=== PATIENT | male | born 1940 | race Caucasian/White ===

== ENCOUNTER 2018-12-10 18:04 | Inpatient (IN) | payer MEDICARE, OTHER ==
[~2018-12-10] VITALS: Ht 172.7 cm; Wt 98.9 kg
--- NOTE | ~2018-12-10 | HEMODYNAMI ---
PATIENT:NED YOUNG MEDICAL RECORD: [id number] : 38 [id number] ADMISSION DATE: 12/11/18 Generatedon:12/12/201814:05 Patient name: NED YOUNG Patient #: [id number] SSN: [id number] : 1940 Date of study: 12/12/2018 Page: Of Hemodynamic Procedure Report Patient Data Patient Demographics Procedure consent was obtained First Name: NED Gender: Male Last Name: HECTOR : 1940 Patient #: [id number] Age: 78 year(s) Race: SSN: [id number] Additional ID: [id number] Contact details Address: [address] [place] [address] State: [place] City: [facility] [place] Zip code: [address] Past Medical History History of disease Date Diagnosis Comments CAD Allergies: No known allergies Admission Admission Data Admission Date: 12/11/2018 Admission Time: 15:25 Arrival Date: 12/12/2018 Arrival Time: 0:00 Admit Source: Other Insurance Payor: Medicare Room #: D.2121 [facility] #: [id number] Height (in.): 68.11 BSA: 2.12 (m2) Height (cm.): 173 BMI: 33.08 (kg/m2) Weight (lbs.): 218.26 Weight (kg.): 99 Lab Results Lab Result Date: 12/12/2018 Lab Result Time: 0:00 Biochemistry Name Units Result Min Max BUN mg/dl 17 --(---*)-- 7 18 Creatinine mg/dl 1.1 --(--*-)-- 0.6 1.3 CBC Name Units Result Min Max Hematocrit % 39.9 -*(----)-- 42 54 Hemoglobin g/dl 13.1 -*(----)-- 13.5 17.5 Procedure Procedure Types Cath Procedure Diagnostic Procedure LHC LHC w/Coronaries w/Grafts FFR/IVUS FFR Initial FFR Additional Sedation Charges Moderate Sedation up to 30 minutes PCI Procedure Coronary Stent Coronary Stent Initial Procedure Description Procedure Date Procedure Date: 12/12/2018 Procedure Start Time: 13:28 Procedure End Time: 14:02 Procedure Staff Name Function Be Garcia MD Performing Physician Nayana Ricci RT Monitor Justine Denny RT Monitor Yumiko Cosby RT Scrub Donna Duron RN Nurse Procedure Data Cath Procedure Fluoroscopy Diagnostic fluoroscopy Total fluoroscopy Time: time: 14.3 min 14.3 min Diagnostic fluoroscopy Total fluoroscopy dose: dose: 1631 mGy 1631 mGy Contrast Material Contrast Material Type Amount (ml) Isovue 300 203 Entry Location Entry Primary Successful Side Size Upsize Upsize Entry Closure Succes sful Closure Location (Fr) 1 (Fr) 2 (Fr) Remarks Device Remarks Femoral Right 5 Fr 6 Fr Exoseal artery Short Estimated blood loss: 10 ml Diagnostic catheters Device Type Used For End Catheter Placement MULTIPACK Pigtail 5 Fr LV Angiography catheter MULTIPACK JL 4.0 5Fr Left Coronary catheter Angiography MULTIPACK 3DRC 5Fr Right Coronary catheter Angiography DIAGNOSTIC AR2 MOD 5 Fr Procedure catheter ([id number]) Procedure Complications No complications Procedure Medications Medication Administration Route Dosage Oxygen etCO2 Nasal cannula 2 l/min Lidocaine 2% added to field 20 Heparin Flush Bag added to field 2 bags (1000units/500ml NS) 0.9% NaCl I.V. 100 ml/hr Versed I.V. 2 mg Fentanyl I.V. 100 mcg Versed I.V. 2 mg Fentanyl I.V. 100 mcg Heparin Bolus I.V. 4000 units Hemodynamics Rest BSA: 2.12 (m2) HGB: 13.1 (g/dl) O2 Consumption: Estimated: 244.41 (ml/min) O2 Co nsumption indexed: Estimated:115.29 (ml/min/m) Heart Rate: 72 (bpm) Snapshots Pre Cath Intra NCS Post Cath Vital Signs Time Heart Resp SPO2 etCO2 NIBP (mmHg) Rhythm Pain Sedation Rate (ipm) (%) (mmHg) Status Level (bpm) 13:14:59 71 10 94 29.2 147/68(117) NSR 0 (11) 10(A) , No pain 13:19:21 71 11 96 29.2 145/73(116) NSR 0 (11) 10(A) , No pain 13:23:45 71 13 97 18.7 143/75(117) NSR 0 (11) 10(A) , No pain 13:28:09 72 14 97 23.2 147/76(111) NSR 0 (11) 9(A) , No pain 13:32:39 71 18 93 40.5 143/67(110) NSR 0 (11) 9(A) , No pain 13:36:55 71 16 94 39.7 136/69(110) NSR 0 (11) 9(A) , No pain 13:41:16 71 10 95 39.7 136/65(103) NSR 0 (11) 9(A) , No pain 13:45:38 70 11 96 41.2 137/67(102) NSR 0 (11) 9(A) , No pain 13:50:02 70 10 96 41.2 138/66(98) NSR 0 (11) 9(A) , No pain 13:54:20 69 10 96 38.9 133/61(101) NSR 0 (11) 9(A) , No pain 13:58:38 68 11 96 37.4 129/63(110) NSR 0 (11) 10(A) , No pain 14:03:00 69 13 96 36.7 135/67(103) NSR 0 (11) 10(A) , No pain Medications Time Medication Route Dose Verified Delivered Reason Notes Effectiveness by by 13:13:47 Oxygen etCO2 2 Be Buffie used for Nasal l/min Jose Duron RN procedure cannula 13:13:55 Lidocaine 2% added 20ml Beradha rL for local to vial Jose Garcia MD anesthetic field 13:14:01 Heparin Flush added 2 Be Be used for Bag to bags Jose Garcia MD procedure (1000units/500ml field NS) 13:14:10 0.9% NaCl I.V. 100 Be Buffie Per physician ml/hr Jose Duron RN 13:23:22 Versed I.V. 2 mg Be Buffie for sedation Jose Duron RN 13:23:28 Fentanyl I.V. 100 Be Buffie for sedation mcg Jose Duron RN 13:30:06 Versed I.V. 2 mg Be Buffie for sedation Jose Duron RN 13:30:09 Fentanyl I.V. 100 Be Thompson for sedation mcg Jose Duron RN 13:52:48 Heparin Bolus I.V. 4000 Be Thompson for verif ied units Jose Duron RN anticoagulation with dr garcia Procedure Log Time Note 12:46:21 Informed consent obtained and on chart 12:46:48 Procedure Status Urgent Heart Cath (IP). 12:46:49 Time tracking: Regular hours (M-F 7:00 - 5:00) 12:46:54 Plan of Care:Hemodynamics will remain stable., Cardiac rhythm will remain stable., Comfort level will be maintained., Respiratory function will remain adequate., Patient/ family verbilizes understanding of procedure., Procedure tolerated without complication., Recovers from procedure without complications.. 12:47:03 Justine Denny RT(R) (CV) sent for patient. Start room use. 12:59:51 Patient arrived from Med II to CCL 1. Patient remains on bed/stretcher for procedure. 12:59:57 Warm blankets applied, and chato hugger turned on for patient comfort. 12:59:58 Correct patient and procedure confirmed by team. 12:59:59 ECG and BP/O2 sat monitors applied to patient. 13:01:49 Patient received from PCU to CCL 1 Alert and oriented. Tansferred to table in Supine position. 13:05:44 Pre-procedure instructions explained to patient. 13:05:44 Pre-op teaching completed and patient verbalized understanding. 13:05:46 Family unavailable. 13:05:47 Patient NPO since Midnight. 13:05:54 Patient allergic to No known allergies 13:06:00 Is patient on blood thinner?Yes 13:06:04 ACC The patient was administered the following blood thiners within the last 24 hours: ACCPlavix 13:06:06 Patient diabetic? Yes. 13:06:08 If diabetic: On Metformin? Yes 13:06:12 If on Metformin: Last Dose? 12/11/2018 13:06:28 Previous problem with sedation/anesthesia? No ? 13:06:29 Snore? Yes 13:06:30 Sleep apnea? No 13:06:31 Deviated septum? No 13:06:33 Opens mouth fully? Yes 13:06:34 Sticks out tongue? Yes 13:06:38 Airway obstruction? Yes COPD 13:07:19 Dentures? No ? 13:07:22 Pre procedure: right dorsailis pedis pulse Doppler 13:07:28 Patient pain scale 0/10 ?. 13:07:34 IV patent on arrival in left antecubital with 0.9% NaCl at [facility]. 13:09:00 Lab Result : BUN 17 mg/dl 13:09:00 Lab Result : Hemoglobin 13.1 g/dl 13:09:00 Lab Result : Creatinine 1.1 mg/dl 13:09: Lab Result : Hematocrit 39.9 % 13:: Lab results completed and on chart. 13:09:17 Stress Test: no; N/A ? 13:09:21 Right groin area was prepped with chlora-prep and draped in sterile fashion 13:: Alarms reviewed by R. N. 13:09: Sharps counted by scrub and verified by R.N. 13:13:03 Risk of Mortality: .1 13:13:06 Risk of blood transfusion: .8 13:13:09 Risk of SOPHIA: .5 13:13:35 Vital chart was started 13:13:47 Oxygen 2 l/min etCO2 Nasal cannula was administered by Donna Duron RN; used for procedure; Verbal order read back and verified. 13:13:55 Lidocaine 2% 20ml vial added to field was administered by Be Garcia MD; for local anesthetic; Verbal order read back and verified. 13:14:01 Heparin Flush Bag (1000units/500ml NS) 2 bags added to field was administered by Be Garcia MD; used for procedure; Verbal order read back and verified. 13:14:10 0.9% NaCl 100 ml/hr I.V. was administered by Donna Duron RN; Per physician; Verbal order read back and verified. 13:14:15 Procedure type changed to Cath procedure, Diagnostic procedure, LHC, LHC w/Coronaries w/Grafts, FFR/IVUS, FFR Initial, FFR Additional, Sedation Charges, Moderate Sedation up to 30 minutes, PCI procedure, Coronary Stent, Coronary Stent Initial 13:17:06 Use device set Femoral Dx 13:17:08 ACIST Syringe (12207) opened to sterile field. 13:17:09 Bag Decanter (2002S) opened to sterile field. 13:17:15 Medline Cath Pack ([id number]) opened to sterile field. 13:17:24 ACIST Hand Control (96744) opened to sterile field. 13:17:25 ACIST Manifold (08600) opened to sterile field. 13:17:32 DIAGNOSTIC Multipack 5Fr catheter set (LP0381) opened to sterile field. 13:17:34 Tegaderm 4 x 4 (1626W) opened to sterile field. 13:17:36 SHEATH 5FR Colerain (XCJ129) opened to sterile field. 13:17:37 EMERALD Guide Wire (416-502) opened to sterile field. 13:21:07 Baseline sample Acquired. 13:21:10 Rhythm: sinus rhythm 13:21:12 Full Disclosure recording started 13:21:48 --------ALL STOP TIME OUT------ 13:21:48 Final Timeout: patient, procedure, and site verified with staff and physician. All members of the team are in agreement. 13:21:50 Right groin site verified by team. 13:21:53 Fire Safety Assessment: A--An alcohol-based skin anteseptic being used preoperatively., C--Open oxygen or nitrous oxide is being used., D--An ESU, laser, or fiber-optic light is being used. 13:21:56 Physical assessment completed. ASA score P 3 - A patient with severe systemic disease as per Be Garcia MD. 13:22:01 2) 60-89 Mildly reduced kidney function, and other findings (as for stage 1) point to kidney disease. 13:22:04 Maximum allowable contrast dose (3.7 X eGFR X 0.75)189 ml. 13:22:07 Sedation plan: IV Moderate Sedation Medication:Versed, Fentanyl 13:22:44 Zero performed for pressure channel P1 13:23:22 Versed 2 mg I.V. was administered by Donna Duron RN; for sedation; Verbal order read back and verified. 13:23:28 Fentanyl 100 mcg I.V. was administered by Donna Duron RN; for sedation; Verbal order read back and verified. 13:24:04 Arrival Date: 12/12/2018 12:00:00 AM 13:24:26 Insurance Payor : Medicare 13:24:30 Admit Source: Other 13:24:41 Patient Height : 68.11 inches 13:24:46 Patient Weight : 218.26 lbs 13:25:54 ACC Patient presents with Stable Angina CCS Anginal Class 3--Marked limitation of physical activity, angina occurs with ordinary activity.. 13:26:04 ACCPatient has been prescribed/administered the following anti-anginal medication within the last 2 weeks: None 13:27:56 Procedure started. 13:28:02 Local anesthetic to right femoral artery with Lidocaine 2% by Be Garcia MD.INITIAL ACCESS ONLY 13:29:17 A 5 Fr sheath was inserted into the Right Femoral artery 13:29:50 A MULTIPACK Pigtail 5 Fr catheter was advanced over the wire and used for LV Angiography. 13:29:54 LV gram done using NOEL 13:30:02 Injector settings: Ml/sec: 10, Volume: 20, 13:30:06 Versed 2 mg I.V. was administered by Donna Duron RN; for sedation; Verbal order read back and verified. 13:30:09 Fentanyl 100 mcg I.V. was administered by Donna Duron RN; for sedation; Verbal order read back and verified. 13:30:44 EF : 35 % 13:30:52 Catheter removed. 13:31:09 A MULTIPACK JL 4.0 5Fr catheter was advanced over the wire and used for Left Coronary Angiography. 13:31:21 LCA angiography performed. 13:32:28 Injector settings: Ml/sec: 3, Volume: 6, 13:33:01 Catheter removed. 13:33:13 A MULTIPACK 3DRC 5Fr catheter was advanced over the wire and used for Right Coronary Angiography. 13:33:42 INFLATOR Merit BasixCompak (PR6619) opened to sterile field. 13:33:55 SHEATH 6FR Colerain (ZYP102) opened to sterile field. 13:34:06 CHOICE PT Extra Support 182cm wire ([id number]) opened to sterile field. 13:34:22 BARNARD to LAD angiography performed. 13:35:00 RCA angiography performed. 13:35:04 Catheter removed. 13:35:10 A DIAGNOSTIC AR2 MOD 5 Fr catheter (707383C) was advanced over the wire and used for Procedure. 13:35:50 SVG to Diag occluded. 13:36:11 Catheter removed. 13:36:36 Sheath upsized to a 6 Fr Short. 13:37:19 [place] Verrata Plus pressure wire (93865D) opened to sterile field. 13:37:21 GUIDE 6FR XBLAD 4.0 catheter ([id number]) opened to sterile field. 13:37:40 6 Fr XBLAD4 guide catheter was inserted over the wire 13:37:49 FFR/IFR wire advanced. 13:39:01 Wire advanced across lesion. 13:39:21 mCirc lesion measured at 0.93 with IFR 13:39:51 IFR WIRE IS REDIRECTED TO THE OM. 13:40:00 OM1 lesion measured at 0.90 with IFR 13:44:41 Wire removed. 13:45:06 FIELDER XT 190cm guidewire ([id number]) opened to sterile field. 13:45:42 FIELDER WIRE wire advanced. 13:47:05 FIELDER XT J 300cm guide wire ([id number]) opened to sterile field. 13:47:22 SuperCross Microcatheter 90 angle (5304) opened to sterile field. 13:48:26 Wire removed. 13:48:57 SUPERCROSS AND FIELDER 300 WIRE ADVANCED. 13:52:48 Heparin Bolus 4000 units I.V. was administered by Donna Duron RN; for anticoagulation; verified with dr garcia Verbal order read back and verified. 13:54:05 Inflate balloon Inflation number: 1 A EUPHORA 2.5 x 12 Balloon ([id number]) was prepped and advanced across the Mid LAD , then inflated to 11 [place] for 0:10 (min:sec) . 13:54:29 Inflation number: 2 The EUPHORA 2.5 x 12 Balloon ([id number]) was reinflated across the Mid LAD , to 11 [place] for 0:00 (min:sec) . 13:54:37 Inflation number: 3 The EUPHORA 2.5 x 12 Balloon ([id number]) was reinflated across the Mid LAD , to 15 EV[place] for 0:00 (min:sec) . 13:54:48 Balloon removed over the wire. 13:55:20 GUIDE 6FR XBLAD 4.0 catheter ([id number]) opened to sterile field. 13:56:25 Place stent Inflation Number: 4 A EMMA RX 2.5 x 08 stent ([id number]) was prepped and advanced across the Mid LAD . The stent was deployed at 15 EVERTON for 0:10 (min:sec) . 13:57:04 Pre PCI Site: [place] mLAD has 99% stenosis. 13:57:16 Post PCI Site: [place] mLAD has 0% stenosis. 13:57:22 ACT drawn and resulted at 177 seconds. (normal therapeutic range 180-240 seconds). 13:57:26 Stent catheter was removed intact over wire. 13:57:57 EXOSEAL 6Fr (EX600) opened to sterile field. 13:58:23 Sheath removed intact; hemostasis achieved with Exoseal to the Right Femoral artery. 13:58:26 Procedure ended.(Physican Out) 13:58:50 Contrast amount:Isovue 300 203ml. 13:59:02 Fluoroscopy time 14.30 minutes. 13:59:12 Flurop Dose total: 1631 13:59:12 Fluoroscopy dose: 1631 mGy 13:59:22 Dose Area Product 91288 mGy/cm. 13:59:30 Maximum allowable dose exceeded? Yes. 13:59:32 Sharps counted by scrub and verified by R.N. 13:59:35 Insertion/operative site no bleeding no hematoma. 13:59:41 Post-op/insertion site Right Femoral artery dressed using a 4 x 4 and Tegaderm. 13:59:46 Post right femoral artery:stable 13:59:49 Post Procedure Pulses reassessed and unchanged 13:59:58 Post-procedure physical assessment completed. ASA score P 3 - A patient with severe systemic disease as per Be Garcia MD. 14:00:02 Post procedure rhythm: unchanged. 14:00:06 Estimated blood loss: 10 ml 14:00:11 Post procedure instruction explained to patient.Patient verbalizes understanding. 14:00:12 Patient needs reinforcement of post procedure teaching. 14:01:25 Procedure and supply charges have been captured, reviewed, submitted and are correct. 14:02:28 Procedure Complication : No complications 14:02:31 Vital chart was stopped 14:02:35 [facility] Findings: MVD- PCI performed (see procedure note) 14:02:40 Operative report dictated upon procedure completion. 14:02:41 See physician's report for complete and final results. 14:02:43 Report given to Med II. 14:02:47 Patient transfered to [facility] with Bed. 14:02:51 Procedure ended. 14:02:51 Full Disclosure recording stopped 14:02:58 ACC-PCI Only Patient was given prescriptions, or instructed by Be Garcia MD to start/continue the following medications upon discharge: Plavix 14:03:04 End room use (Document Last) Intervention Summary Intervention Notes Time ActionType Lesion and Equipment Used Action# Pressure Duration Attributes 13:54:05 Inflate Mid LAD EUPHORA 2.5 x 1 11 00:10 balloon 12 Balloon ([id number]) 13:54:29 Reinflate Mid LAD EUPHORA 2.5 x 2 11 00:00 balloon 12 Balloon ([id number]) 13:54:37 Reinflate Mid LAD EUPHORA 2.5 x 3 15 00:00 balloon 12 Balloon ([id number]) 13:56:25 Place stent Mid LAD EMMA RX 2.5 x 4 15 00:10 08 stent ([id number]) Device Usage Item Name Manufacture Quantity Catalog Number Hospital Part Current Minimal Lot# / Charge Number Stock Stock Serial# Code ACIST Syringe Acist 1 45953 924353 689068 851665 20 (98875) Medical Systems Inc Bag Decanter Microtek 1 2001S 957950 11797 592482 5 (2001S) Medical Inc. Medline Cath Medline 1 [id number] 333721 84336 764159 5 Pack ([id number]) ACIST Hand Acist 1 90036 161660 459726 046276 5 Control Medical (06544) Systems Inc ACIST Manifold Acist 1 81167 534094 124471 199936 5 (13669) Medical Systems Inc DIAGNOSTIC Cardinal 1 KR2276 521930 41575 840592 30 Multipack 5Fr Health catheter set (XE7263) Tegaderm 4 x 4 3M 1 1626W 818976 801024 104195 5 (1626W) SHEATH 5FR Terumo 1 SEA072 851307 855960 254935 5 Colerain (OWU622) EMERALD Guide Cardinal 1 502-455 829610 443212 656223 5 Wire (502455) Health MULTIPACK Cardinal 1 306708 5 Pigtail 5 Fr Health catheter MULTIPACK JL Cardinal 1 954100 5 4.0 5Fr Health catheter MULTIPACK 3DRC Cardinal 1 090445 5 5Fr catheter Health INFLATOR Merit Merit 1 AL6607 479378 314212 646596 15 BasTalicious Medical (VM3090) SHEATH 6FR Terumo 1 MTO171 531836 974250 395072 40 Colerain (TQK226) CHOICE PT [place] 1 [id number] 937527 727450 379097 5 Extra Support Scientific 182cm wire ([id number]) DIAGNOSTIC AR2 Cardinal 1 457161C 819233 303831 831611 20 MOD 5 Fr Health catheter (948481X) [place] 1 46519D 446878 831403841 052694 5 Verrata Plus pressure wire (21872M) GUIDE 6FR Cardinal 2 18766855 456967 312331 848330 3 XBLAD 4.0 Health catheter (38163139) FIELDER XT Garay 1 [id number] 198129 72227 411010 5 190cm Vascular guidewire ([id number]) FIELDER XT J Garay 1 [id number] 193845 327301 546284 5 300cm guide Vascular wire ([id number]) SuperCross Vascular 1 5304 715452 697231 869238 5 Microcatheter Solutions 90 angle (5304) EUPHORA 2.5 x Medtronic 1 [id number] 687537 773211 282216 5 [id number] 12 Balloon ([id number]) EMMA RX 2.5 x Medtronic 1 [id number] 499881 3663703 610858 5 [id number] 08 stent ([id number]) EXOSEAL 6Fr Cardinal 1 EX600 832250 617652 489381 10 (EX600) Health Signature Audit [place] Stage Time Signature Unsigned Intra-Procedure 12/12/2018 Justine 2:04:15 PM Eduin RT(R) (CV) Intra-Procedure 12/12/2018 Donna Duron RN 2:04:52 PM Intra-Procedure 12/12/2018 Be Garcia 2:05:21 PM [facility] [address] [place] [address]
[2018-12-10] MEDS ORDERED: GLUCOPHAGE500 MG PO (18:11)
[2018-12-10] MEDS ORDERED: TRIAMTERENE-HC1 EAC6 PO (18:11)
[2018-12-10] MEDS ORDERED: GABAPENTIN100 MG PO (18:12)
[2018-12-10] MEDS ORDERED: ZOCOR80 MG PO (18:12)
[2018-12-10] MEDS ORDERED: BAYER CHEWABLE81 MG PO (18:12)
[2018-12-10] MEDS ORDERED: TENORMIN50 MG PO (18:12)
[2018-12-10] MEDS ORDERED: PROCARDIA10 MG PO (18:13)
[2018-12-10] MEDS ORDERED: ROBAXIN500 MG PO (18:13)
[2018-12-10 18:41] LABS: BASOPHILS 0.1 % (0-2); EOSINOPHILS 0.2 % (0-7); HEMATOCRIT 39.9 % (42.0-54.0); HEMOGLOBIN 13.1 g/dL (13.5-17.5); IMMATURE GRANULOCYTES 0.2 % (0-5); LYMPHOCYTES 4.8 % (15-50); MCHC 32.8 g/dL (31.0-37.0); MCV 91.3 fL (80.0-100.0); MEAN PLATELET VOLUME 10.5 fL (7.4-10.4); MONOCYTES 8.6 % (2-11); NEUTROPHILS 86.1 % (40-80); PLATELET COUNT 246 10x3/uL (130-400); RBC 4.37 10x6/uL (4.20-6.10); RDW 14.3 % (11.5-14.5); WBC 16.9 10x3/uL (4.8-10.8)
[2018-12-10 18:44] VITALS: BP 141/62
[2018-12-10 18:47] LABS: CALC OSMOLALITY 282 mosm/kg (275-300); CALCIUM 8.6 mg/dL (8.5-10.1); CARBON DIOXIDE 25.7 mmol/L (21.0-32.0); CHLORIDE - SERUM 101 mmol/L (98-107); CREATININE - SERUM 1.1 mg/dL (0.6-1.3); GLUCOSE 146 mg/dL (74-106); POTASSIUM - SERUM 3.9 mmol/L (3.5-5.1); SODIUM 139 mmol/L (136-145); UREA NITROGEN 17 mg/dL (7-18); eGFR NON AFRICAN AMERICAN 68 mL/min (90-120)
[2018-12-10 18:49] LABS: APTT 30.9 SECONDS (22.8-39.4); INR 1.17 (0.85-1.17); PROTIME 14.4 SECONDS (11.6-15.0)
[2018-12-10 19:08] LABS: ALBUMIN 3.3 g/dL (3.4-5.0); ALKALINE PHOSPHATASE 86 U/L (46-116); ALT (SGPT) 51 U/L (10-68); BILIRUBIN - TOTAL 0.79 mg/dL (0.2-1.3); CREATINE KINASE 115 UL (21-232); PRO BNP 1416 pg/mL (0-450); PROTEIN - SERUM 6.9 g/dL (6.4-8.2)
[2018-12-10 19:12] LABS: TROPONIN-I 0.116 ng/mL (0.000-0.060)
[2018-12-10 19:45] VITALS: BP 138/64
[2018-12-10] MEDS ORDERED: ALBUTEROL SULF8.5 GM INH (21:18)
[2018-12-10 23:27] VITALS: BP 146/65; BMI 33.2
[2018-12-10 23:44] VITALS: BP 146/65
[2018-12-11 04:05] VITALS: BP 128/58
--- NOTE | 2018-12-11 07:00 | NUR ---
RECEIVED REPORT. ASSUMED CARE OF PATIENT. PATIENT RESTING IN BED WITH EYES CLOSED ON LEFT LATERAL SIDE. CALL LIGHT WITHIN REACH. NO DISTRESS. SR, RATE OF 80 ON TELEMETRY.
[2018-12-11 08:45] VITALS: BP 140/66
--- NOTE | 2018-12-11 12:25 | NUR ---
RESTING IN BED WITH HEAD OF BED ELEVATED. CALL LIGHT WITHIN REACH. PATIENT ADMINISTERED HIGH DOSE PLAVIX ORDERED. NO DISTRESS.
[2018-12-11 13:09] VITALS: BP 125/57
--- NOTE | 2018-12-11 17:51 | NUR ---
RESTING IN BED. DENIES NEEDS. FEMALE VISITOR AT BEDSIDE. CALL LIGHT WITHIN REACH. NO DISTRESS.
[2018-12-11 17:57] VITALS: BP 132/68
--- NOTE | 2018-12-11 18:45 | NUR ---
CONSENTS SIGNED AND PLACED ON CHART FOR HEART CATH WITH IN THE AM.
[2018-12-11 20:00] VITALS: BP 135/55
--- NOTE | 2018-12-11 23:24 | NUR ---
INITIAL ROUNDS COMPLETED AT 1910 HRS. PT WATCHING TV. NO DISTRESS NOTED. ASSESSMENT COMPLETED AT 1945 HRS. VSS. ALERT AND ORIENTED TO PERSON,PLACE AND TIME. AYALA. O2 2LNC. LUNGS DIMINSIHED IN BASES BILAT. IV TO L HAND SL. PT USES BRACE CRUTCHES FOR AMBULATION. MORPHINE 4MG SIVP GIOVEN FOR C/O CHEST/BACK PAIN AFTER ASSESSMENT. PM MEDS GIVEN. DISCUSSED NPO AFTER MIDNIGHT FOR AM C. PT STATED UNDERSTANDING. TURKEY SANDWICH GIVENPER REQUEST AT 2300 HRS. PT CURRENTLY WATCHING TV. DENIES ANY DISCOMFORT. SR UP X2, CALL LIGHT WITHIN REACH.
[2018-12-12 00:23] VITALS: BP 130/66
--- NOTE | 2018-12-12 00:41 | NUR ---
PT AWAKE; DENIES ANY DISCOMFORT. SR UP X2, CALL LIGHT WITHIN REACH.
--- NOTE | 2018-12-12 02:44 | NUR ---
PT RESTING WITH EYES CLOSED. RESP EVEN AND REGULAR. SR UP X2,CALL LIGHT WITHIN REACH.
--- NOTE | 2018-12-12 03:58 | NUR ---
PT RESTING WITH EYES CLOSED. RESP EVEN AND REGULAR. SR UP X2, CALL LIGHT WITHIN REACH.
[2018-12-12 04:00] VITALS: BP 134/59
--- NOTE | 2018-12-12 05:58 | NUR ---
HIBICLENS BATH DONE, GROIN PREPPED AND CLIPPED. WILL CONTINUE TO MONITOR.
--- NOTE | 2018-12-12 07:40 | NUR ---
ASSESSMENT DONE DENIES NEEDS.
[2018-12-12 10:35] VITALS: BP 129/52
[2018-12-12 12:47] VITALS: BP 166/64
--- NOTE | 2018-12-12 13:10 | NUR ---
TO MIXER OPERATOR RAW SALT PER BED
--- NOTE | 2018-12-12 13:32 | NUR ---
I have reviewed this patient and I concur with the Shift Assessment completed by the Licensed Practical Nurse today this shift.
[2018-12-12 14:23] VITALS: Ht 172.7 cm; Wt 98.9 kg
[2018-12-12] MEDS ORDERED: PLAVIX75 MG PO (14:36)
[2018-12-12 16:40] VITALS: BP 153/72
--- NOTE | 2018-12-13 08:50 | MORECARE ---
CASE MANAGEMENT DISCHARGE SUMMARY PATIENT: NED YOUNG UNIT: [id number] ADM DATE: 12/11/18 AGE: 78 : 39 SEX: M ROOM/BED: D.2121 AUTHOR: MADISYN STEIN PHYSICIAN: REFERRING PHYSICIAN: JEANNETTE PHILLIP MD DATE OF SERVICE: 12/13/18 Discharge Plan Patient Name: [facility]ED YOUNG [facility] [facility] 1940 Planned Disposition: Home Anticipated Discharge Date: 12/12/18 Discharge Date: 12/12/2018 Expected LOS: 1 Initial Reviewer: [email or web address] Initial Review Date: 12/13/2018 Generated: 12/13/18 9:50 am Patient Name: NED YOUNG Page 11638 at 0850 All edits/amendments must be made on the electronic document DICTATION DATE: 12/13/18 0850 SYSTEM ENGINEER: ARMANDO 12/13/18 0850 RPT#: [id number] DC DATE:12/12/18 STATUS: DIS IN [facility] [address] [place] [address] END OF REPORT
--- NOTE | 2018-12-14 14:07 | HP ---
PATIENT: NED YOUNG MEDICAL RECORD: [id number] ACCOUNT: [id number] LOCATION:[address] : 38 ADMISSION DATE: 12/11/18 PCP: LUCERO STARK MD HISTORY AND PHYSICAL EXAMINATION DIAGNOSES: 1. Unstable angina. 2. Coronary artery disease. 3. 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 4. Shortness of breath, dyspnea on exertion. 5. Hypertension. 6. Hyperlipidemia. HISTORY OF PRESENT ILLNESS: Mr. Young presents with 3 days of severe shortness of breath, dyspnea on exertion, and today he developed chest pain and chest pressure. It is a relatively typical anginal pain. It is not associated with position. It feels like an elephant is sitting on his chest. He does have a history of coronary artery disease, coronary bypass graft surgery, 3-vessel 22 years ago. The only possible noncardiac part of his history is that he was driving back from [facility] for a long car ride. He did not have any sharp or pleuritic chest pain with this. His EKG is with nonspecific ST-T abnormalities, but no acute ST-T changes. He continues to have the chest pressure. PHYSICAL EXAMINATION: CONSTITUTIONAL/GENERAL APPEARANCE: Well nourished, well developed, appears stated age. EYES: Lids and conjunctivae noninjected. No discharge. No pallor. ENT: Lips within normal limit. No cyanosis. No pallor. NECK: Carotid arteries, bilateral normal upstroke. No bruits. No thrills. No jugular venous pressure or distention. CERVICAL LYMPH NODES: Nontender. Nonenlarged. THYROID: Not enlarged. No nodules. CARDIOVASCULAR: Precordial exam, nondisplaced. No heaves or pericardial thrills. Rate and rhythm, regular. Heart sounds, normal S1, normal S2. No S3, no gallop, no rub. Systolic murmur, not heard. Diastolic murmur, not heard. RESPIRATORY: Respiratory effort, unlabored. Normal curvature. No thoracic deformity. No chest wall tenderness. Percussion, resonant. Auscultation, clear. No wheezes, no rales, no rhonchi. ABDOMEN: Soft, nondistended, nontender. No abdominal pain, no vomiting and normal appetite. MUSCULOSKELETAL: No joint tenderness, normal gait, normal tone. SKIN: Warm and dry. OVERALL IMPRESSION: Chest pressure compatible with angina. We will get CT angiography to rule out pulmonary embolus in light of the long car ride that started this symptomatology of shortness of breath, and chest pain. If the CT angio is negative, there is a high likelihood that this is cardiac in nature; would proceed with coronary angiography in the near future then, optimizing medical management. TRANSINT:[id number] Voice Confirmation ID: [id number] DOCUMENT ID: [id number] HISTORY AND PHYSICAL [id number] NED YOUNG JEFFREY MD at 1407 CC: [id number] DICTATION DATE: 12/10/181840 RECRUITER: 12/10/18 2017 DIS IN 12/12/18 [facility] [address] [place] [address]
--- NOTE | 2018-12-14 14:08 | EC ---
PATIENT:NED YOUNG DATE OF SERVICE: 12/11/18 SEX: M MEDICAL RECORD: [id number] DATE OF : 38 LOCATION:D.M2 D.212 AGE OF PATIENT: 78 ADMISSION DATE: 12/11/18 REFERRING PHYSICIAN: INTERPRETING PHYSICIAN: JEANNETTE GARCIA MD ECHOCARDIOGRAM REPORT ECHO CHARGES 4 ECHO COMPLETE Date: 12/11/18 CLINICAL DIAGNOSIS: UNSTABLE ANGINA HX CABG/CAD ECHOCARDIOGRAPHIC MEASUREMENTS (adult normal given) AC root (d.<3.7cm) 3.9 cm LV Septum d (<1.2 cm> 1.3 cm Valve Excursion 1.7 cm LV Septum (systole) 1.4 cm Left Atria (s.<4.0cm> 3.8 cm LVPW d(<1.2cm) 1.4 cm RV (d.<2.3cm) 4.1 cm LVPW (sytole) 1.9 cm LV diastole(<5.6CM) 6.2 cm MV E-F(>70mm/sec) cm LV systole 5.1 cm LVOT Diameter 1.9 cm MV exc.(>10mm) 2.5 cm Est.ejection fraction (50-75%) % DOPPLER: LVIT cm/sec A 96.0 cm/sec E 137.0 cm/sec LA cm/sec RVSP 38 mmHg LVOT 100 cm/sec AOP1/2T m/s Asc. Ao 174 cm/sec RVOT 81 cm/sec RA cm/sec PA 103 cm/sec AV Gradient Peak 12.15mmHg AV Mean 6.42 mmHg AV Area 1.8 cm MV Gradient Peak 7.55 mmHg MV Mean 3.34 mmHg MV Area cm COMMENTS: Beverage Host: 2 ELVIA GLASER Dispatcher Chief Coal Slurry: 1 Dr. Garcia TAPE# PACS Pericardial Effusion N DATE OF SERVICE: FINDINGS: 1. Left ventricular chamber size is within normal limits. Left ventricular systolic function is normal at 55%. 2. Left atrium is within normal limits at 3.8 cm. Right atrium and right ventricular chamber sizes are mildly dilated. 3. Valvular structures have normal structure and motion. 4. Doppler interrogation reveals mild mitral regurgitation, mild tricuspid regurgitation, no other valvular insufficiency or stenosis. Pulmonary systolic ECHOCARDIOGRAM REPORT [id number] NED YOUNG pressure is estimated at 38 mmHg. 5. No evidence of pericardial effusion or left ventricular thrombus. TRANSINT:[id number] Voice Confirmation ID: [id number] DOCUMENT ID: [id number] JEANNETTE GARCIA MD at 1408 CC: [id number] DICTATION DATE: 12/12/18 1530 CAPITAL PROJECT ENGINEER: 12/13/18 0046 DIS IN 12/12/18 [place] [id number] [place] [id number]
--- NOTE | 2018-12-14 14:08 | OP ---
PATIENT NAME: NED YOUNG MEDICAL RECORD: [id number] :38 LOCATION:D.M2 D.2121 ADMISSION DATE:12/11/18 SURGEON: JEANNETTE PHILLIP MD DATE OF OPERATION: 12/12/2018 PROCEDURES: 1. PTCA and stent of the LAD diagonal. 2. Left heart catheterization. 3. Selective coronary angiography. 4. Vein graft angiography. 5. BARNARD angiography. 6. IFR to the circumflex and first obtuse marginal. DESCRIPTION OF THE PROCEDURE: After informed consent was obtained, after detailed description of risks, benefits as well as alternative therapies, the patient elected to proceed with angiogram and angioplasty. The right femoral area was prepped and draped in normal sterile fashion. Right femoral artery was cannulated via modified Seldinger technique with placement of 6-[place]guill[place] sheath. All catheters exchanged through this sheath. FINDINGS: Left ventriculogram was performed in standard 30-degree NOEL view, reveals global hypokinesis. Overall ejection fraction decreased at 40%. SELECTIVE CORONARY ANGIOGRAPHY: 1. Left main is with no significant angiographic disease. 2. Left anterior descending has a total occlusion in the mid vessel. Before the total occulsion there is an LAD diagonal that takes off, this is 99% stenosed. 3. Vein graft to the diagonal is closed. 4. BARNARD to the LAD is patent. Distal LAD is patent. 5. Left circumflex has a closed vein graft. 6. Left circumflex has 50% to 70% stenosis in the mid vessel; however, IFR of the circumflex and the OM are normal. 6. Right coronary is totally occluded. 7. Vein graft to the right coronary is totally occluded. PTCA AND STENT OF THE LAD DIAGONAL: The [place] LAD diagonal was addressed with a 2.5 x 8 mm [place]. Result was 0% residual stenosis. OVERALL IMPRESSION: Successful percutaneous transluminal angioplasty stent of the left anterior descending diagonal going from 99% initial stenosis to 0% residual. TRANSINT:[id number] Voice Confirmation ID: [id number] DOCUMENT ID: [id number] JEANNETTE PHILLIP MD at 1408 CC: [id number] DICTATION DATE: 12/12/18 1404 MANAGEMENT TECH: 12/13/18 0053 DIS IN 12/12/[address] [address]
--- NOTE | 2019-01-04 11:17 | DS ---
PATIENT:NED YOUNG :38 MEDICAL RECORD: [id number] DISCHARGE SUMMARY ADMISSION DATE: 12/11/18 DISCHARGE DATE: 12/12/18 DISCHARGE DIAGNOSES: 1. Unstable angina. 2. Coronary artery disease. 3. Percutaneous transluminal coronary angioplasty and stent to the left anterior descending and diagonal this admission. HOSPITAL COURSE: Ms. Young presents with unstable anginal symptomatology, found to have significant disease of the LAD and diagonal and underwent successful PTCA and stent of these with no further angina. Discharged home with the addition of aspirin, Plavix, and Pravachol to his medical regimen. Will follow up with [facility] in 1 month. TRANSINT:[id number] Voice Confirmation ID: [id number] DOCUMENT ID: [id number] JEANNETTE PHILLIP MD at 1117 CC: [id number] DICTATION DATE: 01/02/19 1201 DANCE COACH: 01/02/19 2214 DIS IN 12/12/18 [place] [id number] [place] [address]
== END 2018-12-12 19:13 | disposition home or self-care (01) | DRG 246 ==
LOC: D.ER 18:04 → D.M2 19:55 → OBSVTIME 19:55 → D.M2 12-11 15:25
PROVIDERS: Family Medicine; ADMIT Internal Medicine Interventional Cardiology; ATTEND Internal Medicine Interventional Cardiology
PROC: 4A023N7 Measurement of Cardiac Sampling and Pressure, Left Heart, Percutaneous Approach (ICD-10-PCS; 2018-12-12)
PROC: B2121ZZ Fluoroscopy of Single Coronary Artery Bypass Graft using Low Osmolar Contrast (ICD-10-PCS; 2018-12-12)
PROC: B2181ZZ Fluoroscopy of Left Internal Mammary Bypass Graft using Low Osmolar Contrast (ICD-10-PCS; 2018-12-12)
PROC: B2111ZZ Fluoroscopy of Multiple Coronary Arteries using Low Osmolar Contrast (ICD-10-PCS; 2018-12-12)
PROC: B2151ZZ Fluoroscopy of Left Heart using Low Osmolar Contrast (ICD-10-PCS; 2018-12-12)
PROC: 027034Z Dilation of Coronary Artery, One Artery with Drug-eluting Intraluminal Device, Percutaneous Approach (ICD-10-PCS; principal; 2018-12-12 12:47)
PROC: 4A033BC Measurement of Arterial Pressure, Coronary, Percutaneous Approach (ICD-10-PCS; 2018-12-12 12:47)
DX: I21.4 Non-ST elevation (NSTEMI) myocardial infarction (principal); J18.9 Pneumonia, unspecified organism; I25.110 Atherosclerotic heart disease of native coronary artery with unstable angina pectoris; I10 Essential (primary) hypertension; E78.5 Hyperlipidemia, unspecified; E11.9 Type 2 diabetes mellitus without complications; J44.9 Chronic obstructive pulmonary disease, unspecified

== ENCOUNTER → 2019-07-20 08:57 | Outpatient (CLI) | payer OTHER ==
[2018-12-12 14:23] VITALS: BMI 33.1
[~2019-07-20 08:57] MED LIST: ALBUTEROL SULF8.5 GM INH; BAYER CHEWABLE81 MG PO; GABAPENTIN100 MG PO; GLUCOPHAGE500 MG PO; PLAVIX75 MG PO; PROCARDIA10 MG PO; ROBAXIN500 MG PO; TENORMIN50 MG PO; TRIAMTERENE-HC1 EAC6 PO; ZOCOR80 MG PO
== END | disposition home or self-care (01) ==
LOC: D.ECHO 08:57
PROVIDERS: ATTEND Orthopaedic Surgery
DX: I25.10 Atherosclerotic heart disease of native coronary artery without angina pectoris (principal)